=== PATIENT | female | born 1990 | race Two or more races ===

== ENCOUNTER → 2020-10-27 | Outpatient (CLI) | payer BC ==
--- NOTE | 2020-10-27 14:10 | KCIC ---
EXAM: Chest, single view. HISTORY: Positive tuberculin skin test. COMPARISON: None. FINDINGS: A frontal view of the chest is obtained. There is no infiltrate, pleural effusion or pneumo thorax. The heart is normal in size. IMPRESSION: No acute pulmonary finding or evidence of pulmonary tuberculosis. Electronically signed by: May Gregorio MD (10/27/2020 2:07 PM) [id number]
== END ==
LOC: KCIC 12:56
PROVIDERS: ATTEND Internal Medicine Pulmonary Disease
DX: A15.9 Respiratory tuberculosis unspecified (principal)
CPT/HCPCS: 71045